=== PATIENT | female | born 1965 | race Caucasian/White ===

== ENCOUNTER 2021-01-14 21:46 | Emergency (ER) | payer OTHER ==
[2021-01-14 22:02] VITALS: BP 140/91; PULSE 81; TEMP 98.1; BMI 25.0
[2021-01-14] MEDS ORDERED: SODIUM CHLORIDE 0.9% 500 ML INFUS.BAG IV ONE (22:57)
[2021-01-14 23:22] LABS: BASO % 0.3 % (0-2.0); EOS % 0.7 % (0-4.5); HEMATOCRIT 38.7 % (32.4-45.2); HEMOGLOBIN 12.8 GM/dL (10.7-15.3); LYMPH % 10.6 % (8-40); MCH 29.8 pg (25.7-33.7); MCHC 33.2 g/dl (32.0-36.0); MEAN CELL VOLUME 89.8 fl (80-96); MEAN PLT VOLUME 8.4 fl (7.5-11.1); MONO % 5.3 % (3.8-10.2); NEUT % 83.1 % (42.8-82.8); PLATELET COUNT 224 10^3/uL (134-434); RBC 4.31 M/mm3 (3.60-5.2); WHITE BLOOD COUNT 8.1 K/mm3 (4.0-10.0)
[2021-01-14 23:42] LABS: CALCIUM 8.8 mg/dL (8.5-10.1)
[2021-01-14 23:43] LABS: BLOOD UREA NITROGEN 19.9 mg/dL (7-18)
[2021-01-14 23:46] LABS: CREATININE 0.9 mg/dL (0.55-1.3)
[2021-01-14 23:47] LABS: BILIRUBIN,TOTAL 0.4 mg/dL (0.2-1)
[2021-01-15 00:40] LABS: COCAINE, UR NEGATIVE (NEGATIVE); PHENCYCLIDINE,URINE NEGATIVE (NEGATIVE); URINE AMPHETAMINES NEGATIVE (NEGATIVE); URINE BARBITURATES NEGATIVE (NEGATIVE); URINE BENZODIAZEPINES NEGATIVE (NEGATIVE)
[2021-01-15 00:44] LABS: METHADONE, UR NEGATIVE (NEGATIVE); OPIATES, URI NEGATIVE (NEGATIVE)
== END 2021-01-15 00:28 | disposition home or self-care (01) ==
LOC: JER 21:46
DX: F12.90 Cannabis use, unspecified, uncomplicated (principal)
CPT/HCPCS: 36415; 80053; 80307; 85025; 99283-25

== ENCOUNTER 2023-06-10 02:10 | Inpatient (IN) | payer OTHER ==
[2023-06-10 02:16] VITALS: BMI 24.3
[2023-06-10] MEDS ORDERED: SODIUM CHLORIDE 0.9% 500 ML INFUS.BAG IV ONE (03:32)
[2023-06-10] MEDS ORDERED: MAG HYDROX/AL HYDROX/SIMETH 30 ML UNIT-DOSE CUP PO ONE (03:32)
[2023-06-10] MEDS ORDERED: FAMOTIDINE 20 MG/50 ML IVPB 20 MG/50 ML MG IVPB ONE ×2 (03:32→04:29)
[2023-06-10] MEDS ORDERED: ACETAMINOPHEN 1000 MG/100 ML BAG IVPB ONE (03:32)
[2023-06-10 04:22] LABS: BASO % 0.3 % (0-2.0); EOS % 1.2 % (0-4.5); HEMATOCRIT 34.9 % (32.4-45.2); HEMOGLOBIN 11.5 GM/dL (10.7-15.3); LYMPH % 15.7 % (8-40); MCH 29.1 pg (25.7-33.7); MEAN CELL VOLUME 88.3 fl (80-96); MEAN PLT VOLUME 7.9 fl (7.5-11.1); MONO % 7.7 % (3.8-10.2); NEUT % 75.1 % (42.8-82.8); PLATELET COUNT 294 10^3/uL (134-434); RBC 3.95 M/mm3 (3.60-5.2); RDW 13.3 % (11.6-15.6)
[2023-06-10] MEDS ORDERED: MAG HYDROX/AL HYDROX/SIMETH 30 ML UNIT-DOSE CUP ONE (04:29)
[2023-06-10] MEDS ORDERED: ACETAMINOPHEN INJECTION 100 ML IVPB ONE (04:29)
[2023-06-10 04:44] LABS: POTASSIUM 3.7 mmol/L (3.5-5.1)
[2023-06-10 04:46] LABS: CALCIUM 9.2 mg/dL (8.5-10.1)
[2023-06-10 04:47] LABS: ALBUMIN 3.2 g/dl (3.4-5.0)
[2023-06-10 04:50] LABS: CREATININE 0.8 mg/dL (0.55-1.3)
[2023-06-10 04:51] LABS: BILIRUBIN,TOTAL 0.2 mg/dL (0.2-1)
[2023-06-10 07:31] VITALS: BP 113/73; PULSE 74; RESP 18; TEMP 98.1
== END 2023-06-10 08:30 | disposition left against medical advice (07) | DRG 388 ==
LOC: JER 02:10 → JERBED 07:02
PROVIDERS: ADMIT Internal Medicine; ATTEND Internal Medicine
DX: K56.7 Ileus, unspecified (principal); U07.1 COVID-19
CPT/HCPCS: 0241U-QW; 36415; 71046-TC-FY; 74177-TC; 80053; 83690; 84484; 85025; 93005; 93010; 99285-25; Q9967